=== PATIENT | male | born 1950 | race Asian ===

== ENCOUNTER → 2021-02-07 | Emergency (ER) | payer OTHER, MEDICARE ==
[~2021-02-07] VITALS: Ht 167.6 cm; Wt 68.5 kg
[~2021-02-07] MED LIST: ACETAMINOPHEN 325 MG TABLET PO ONE; ALFU10TA10 PO; CEPH-548 PO; LIP20 PO; LOSA25TA3 PO; NACL 0.9% 1,000 ML IV ONE; NITR-85 PO; NS 1000 ML IV.SOLN IV ONE; ONDANSETRON HCL 4 MG/2 ML VIAL IVP ONE; cefTRIAXone 1 GM IVPB PREMIX 50 ML IV ONE; cefTRIAXone 1 GM VIAL ONE; cefTRIAXone 1 GM in D5W 50 ML IV ONE
[2021-02-07 09:11] VITALS: BP_SYST 141
--- NOTE | 2021-02-07 09:11 | NUR ---
BROUGHT IN BY [facility], TRIAGED, REPORT GIVEN TO ERNESTO
--- NOTE | 2021-02-07 09:14 | NUR ---
DR LIMA AT BEDSIDE FOR EVALUATION
--- NOTE | 2021-02-07 09:49 | NUR ---
Pt in Bed 1, changed into gown. Belongings at bedside. VSS.
--- NOTE | 2021-02-07 10:46 | NUR ---
Pt in Bed 1, No s/s of distress. VSS. Placed in/out cath for urine sample. IV 20 g placed on L AC. No infiltration noted. Labs and cultures drawn. Pt currenty at x-ray.
[2021-02-07 10:59] LABS: BASOPHILS % (AUTO) 0.4 % (0.0-2.0); EOSINOPHILS % (AUTO) 0.1 % (0.0-4.0); HEMATOCRIT 40.2 % (36-54); HEMOGLOBIN 13.5 g/dL (14.0-18.0); LYMPHOCYTES # (AUTO) 0.8 K/uL (1.0-5.5); MEAN CORPUSCULAR HEMOGLOBIN 31 pg (27-31); MEAN CORPUSCULAR HGB CONC 34 % (32-36); MEAN CORPUSCULAR VOLUME 93 fL (79.0-98.0); MONOCYTES # (AUTO) 0.8 K/uL (0.0-1.0); MONOCYTES % (AUTO) 6.6 % (1.7-9.3); NEUTROPHILS # (AUTO) 10.2 K/uL (1.8-7.7); NEUTROPHILS % (AUTO) 85.9 % (40.0-70.0); PLATELET COUNT (AUTO) 131 K/uL (130-430); RED BLOOD CELL COUNT(AUTO) 4.31 MIL/uL (4.2-6.2); WHITE BLOOD COUNT (AUTO) 11.9 K/uL (4.8-10.8)
[2021-02-07 11:17] LABS: ANION GAP 4 (5-15); CALCIUM 8.5 mg/dL (8.4-11.0); CHLORIDE 100 mmol/L (98-107); CREATININE 0.94 mg/dL (0.55-1.30); GLUCOSE 128 mg/dL (70-99); POTASSIUM 3.5 mmol/L (3.5-5.1); SODIUM SERUM 134 mmol/L (136-145); UREA NITROGEN, BLOOD 18 mg/dL (8-21)
[2021-02-07 11:18] LABS: PROTHROMBIN TIME 10.5 SECS (9.5-12.5)
[2021-02-07 11:24] LABS: BILIRUBIN,URINE NEGATIVE (NEGATIVE); BLOOD, URINE 2+ (NEGATIVE); CLARITY/URINE SL CLOUDY (CLEAR); COLOR,URINE YELLOW (YELLOW); GLUCOSE,URINE NEGATIVE (NEGATIVE); KETONES,URINE NEGATIVE (NEGATIVE); LEUKOCYTE ESTERASE ,URINE 2+ (NEGATIVE); NITRITE, URINE POSITIVE (NEGATIVE); PH,URINE 6.5 (5.0-8.0); PROTEIN URINE NEGATIVE (NEGATIVE); UROBILINOGEN,URINE 0.2 (0.2-1.0)
--- NOTE | 2021-02-07 11:25 | NUR ---
INSERTED 16 FR URIBE CATHETER UTILIZING STERILE TECHNIQUE. TOLERATED WELL BY PATIENT. NO COMPLICATIONS NOTED. YELLOW CLEAR URINE DRAINING, 200ML AT TIME OF NOTE, BUT STILL DRAINING.
[2021-02-07 11:33] LABS: ALANINE AMINOTRANSFERASE 29 U/L (12-78); ALBUMIN 3.3 g/dL (3.4-4.8); ASPARTATE AMINOTRANSFERASE 13 U/L (10-37); TOTAL BILIRUBIN 1.4 mg/dL (0.0-1.0)
--- NOTE | 2021-02-07 11:35 | NUR ---
Culver catheter in place. Pt has no c/o. VSS. Medication reconciliation done.
[2021-02-07 12:48] LABS: BACTERIA,URINE MODERATE /HPF (None Seen); WBC,URINE 20-50 /HPF (0-3)
--- NOTE | 2021-02-07 13:13 | NUR ---
ER physician at bedside.
--- NOTE | 2021-02-07 18:34 | NUR ---
Emptied Culver Cath and 1000ml was removed.
[2021-02-07 18:39] VITALS: BP_SYST 110
== END | disposition home or self-care (01) ==
LOC: SED 09:11
DX: A41.9 Sepsis, unspecified organism (principal); N39.0 Urinary tract infection, site not specified; R33.9 Retention of urine, unspecified; I10 Essential (primary) hypertension; Z79.899 Other long term (current) drug therapy; Z20.822 Contact with and (suspected) exposure to COVID-19
CPT/HCPCS: 36415; 71045; 74176; 76376; 80053; 81000; 83605; 84484; 85025; 85610; 85730; 87040; 87086; 87426; 93005; 96361; 96365; 96366; 96375; 99285; J0696 ×2; J2405; J7030

== ENCOUNTER 2021-02-08 03:49 | Emergency (ER) | payer OTHER, MEDICARE ==
[~2021-02-08] VITALS: Ht 167.6 cm; Wt 68.5 kg
[~2021-02-08 03:49] MED LIST changes: -ACETAMINOPHEN 325 MG TABLET PO ONE; -CEPH-548 PO; -NACL 0.9% 1,000 ML IV ONE; -NS 1000 ML IV.SOLN IV ONE; -ONDANSETRON HCL 4 MG/2 ML VIAL IVP ONE; -cefTRIAXone 1 GM IVPB PREMIX 50 ML IV ONE; -cefTRIAXone 1 GM VIAL ONE; -cefTRIAXone 1 GM in D5W 50 ML IV ONE
--- NOTE | 2021-02-08 04:15 | NUR ---
DR. JACOB IN TRIAGE FOR MSE
--- NOTE | 2021-02-08 04:20 | NUR ---
PT WALKED IN C/O CONTINUED URINARY RETENTION. PT WAS DISCHARGED TODAY FOR THE SAME, +UTI. PT HAD A URIBE EARLIER THAT WAS REMOVED. PT UNABLE TO URINATE.
--- NOTE | 2021-02-08 04:30 | NUR ---
Patient to ER bed 7 to gown for evaluation. Side rails up.
[2021-02-08] MEDS ORDERED: CEPH-548 PO (04:34)
[2021-02-08 04:35] VITALS: BP_SYST 124
--- NOTE | 2021-02-08 05:34 | NUR ---
# 16 FR Culver catheter with use of sterile technique. Immediate return of 550 cc YELLOW urine noted. Bedside drainage bag placed below level of bladder. Pt tolerated procedure WELL.
[2021-02-08 05:50] VITALS: BP_SYST 124
--- NOTE | 2021-02-08 05:50 | NUR ---
Patient given written and verbal discharge instructions and verbalizes understanding. ER MD discussed with patient the results and treatment provided. Patient in stable condition. ID arm band removed. Rx of KEFLEX given. Patient educated on pain management and to follow up with PMD. Pain Scale 0/10. Opportunity for questions provided and answered. Medication side effect fact sheet provided.
== END 2021-02-08 05:50 | disposition home or self-care (01) ==
LOC: SED 03:49
DX: N12 Tubulo-interstitial nephritis, not specified as acute or chronic (principal); N32.0 Bladder-neck obstruction; R33.9 Retention of urine, unspecified; I10 Essential (primary) hypertension; N40.0 Benign prostatic hyperplasia without lower urinary tract symptoms
CPT/HCPCS: 99284

== ENCOUNTER 2022-06-10 15:23 | Emergency (ER) | payer OTHER, MEDICARE ==
[~2022-06-10] VITALS: Ht 167.6 cm; Wt 74.8 kg
[~2022-06-10 15:23] MED LIST changes: +CEPH-548 PO
[2022-06-10 15:58] VITALS: BP_SYST 138
[2022-06-10] MEDS ORDERED: IBUPROFEN 800 MG TABLET PO ONE (16:15)
[2022-06-10] MEDS ORDERED: HYDROcodone/ACETAMIN 7.5-325 MG TAB PO ONE (16:15)
--- NOTE | 2022-06-10 16:20 | NUR ---
Dr Barclay evaluating patient in the triage room
--- NOTE | 2022-06-10 16:50 | NUR ---
Jorge brown in [facility] - 06/10/22 at [email or web address] Barclay evaluating patient in the triage room
--- NOTE | 2022-06-10 16:50 | NUR ---
Dr Barclay evaluating patient in the triage room
--- NOTE | 2022-06-10 17:02 | NUR ---
Pt brought by self, Alert and appropiate to age, ambulatory, pt presents to ER with severe bilateral arm pain and headache after he fell off rolling chair yesterday, no KO, skin pink and warm, cap refill <3.
--- NOTE | 2022-06-10 21:31 | NUR ---
PLACED IN ROOM 3 PT CONNECTED TO VS MONITOR. VSS NAD EVEN UNLABORED RESPIRATIONS. FAMILY AT BEDSIDE PT STATES HE HAS PAIN AND SWELLING TO RIGHT ARM AND HIT HIS HEAD WHEN HE FELL OFF A CHAIR WITH 4 WHEELS, FAMILY AND HIM STATE IT WAS AN ACCIDENT NO LOC. PT AND FAMILY MEMBER GIVEN WATER MADE AWARE OF PAIN PT IS EXPERIENCING.
--- NOTE | 2022-06-10 21:40 | NUR ---
ER at bedside examining patient.
[2022-06-10] MEDS ORDERED: KETOROLAC TROMETHAMINE 60 MG/2 ML VIAL IM ONE (21:45)
[2022-06-10] MEDS ORDERED: IBUP-1971 PO (22:07)
[2022-06-10] MEDS ORDERED: HYDR-3917 PO (22:07)
[2022-06-10 22:35] VITALS: BP_SYST 136
--- NOTE | 2022-06-10 22:37 | NUR ---
Patient given written and verbal discharge instructions and verbalizes understanding. ER MD discussed with patient the results and treatment provided. Patient in stable condition. ID arm band removed. Rx of IBUPROFEN AND NORCO given. Patient educated on pain management and to follow up with PMD. Pain Scale . Opportunity for questions provided and answered. Medication side effect fact sheet provided.
== END 2022-06-10 22:35 | disposition home or self-care (01) ==
LOC: SED 15:23
DX: S00.03XA Contusion of scalp, initial encounter (principal); S40.021A Contusion of right upper arm, initial encounter; I10 Essential (primary) hypertension; Z79.899 Other long term (current) drug therapy; W07.XXXA Fall from chair, initial encounter; Y93.89 Activity, other specified; Y92.89 Other specified places as the place of occurrence of the external cause; Y99.8 Other external cause status
CPT/HCPCS: 99285; 70450; 73030; 73070; 73100; 76376; 96372; J1885

== ENCOUNTER 2023-11-16 05:46 | Inpatient (IN) | payer OTHER, MEDICARE ==
[~2023-11-16] VITALS: Ht 167.6 cm; Wt 81.6 kg
[~2023-11-16 05:46] MED LIST changes: -ALFU10TA10 PO; +ALFU10TA47 PO; +HYDR-3917 PO; +IBUP-1971 PO; +LOSA-412 PO; -LOSA25TA3 PO
[2023-11-16 06:11] VITALS: BP_SYST 141; PULSE 67; RESP 19; TEMP 96.7; O2SAT 95
[2023-11-16] MEDS: MECLIZINE HCL 25 MG TABLET (ANITVERT) PO ONE (06:56)
[2023-11-16] MEDS: METOCLOPRAMIDE HCL 10 MG/2 ML VIAL IVP ONE (07:02)
[2023-11-16 07:33] LABS: BASOPHILS % (AUTO) 0.6 % (0.0-2.0); EOSINOPHILS # (AUTO) 0.3 K/uL (0.0-0.4); EOSINOPHILS % (AUTO) 4.2 % (0.0-4.0); HEMATOCRIT 43.9 % (36-54); HEMOGLOBIN 14.6 g/dL (14.0-18.0); LYMPHOCYTES # (AUTO) 1.5 K/uL (1.0-5.5); LYMPHOCYTES % (AUTO) 20.7 % (20.5-51.5); MEAN CORPUSCULAR HEMOGLOBIN 32 pg (27-31); MEAN CORPUSCULAR HGB CONC 33 % (32-36); MEAN CORPUSCULAR VOLUME 97 fL (79.0-98.0); MONOCYTES # (AUTO) 0.6 K/uL (0.0-1.0); MONOCYTES % (AUTO) 8.4 % (1.7-9.3); NEUTROPHILS # (AUTO) 4.8 K/uL (1.8-7.7); NEUTROPHILS % (AUTO) 66.1 % (40.0-70.0); PLATELET COUNT (AUTO) 170 K/uL (130-430); RED BLOOD CELL COUNT(AUTO) 4.53 MIL/uL (4.2-6.2); RED CELL DISTRIBUTION WIDTH 13.3 % (9.0-15.0); WHITE BLOOD COUNT (AUTO) 7.3 K/uL (4.8-10.8)
[2023-11-16 07:46] LABS: PROTHROMBIN TIME 10.3 SECS (9.5-12.5)
[2023-11-16 08:01] LABS: ALANINE AMINOTRANSFERASE 34 U/L (12-78); ALBUMIN 3.7 g/dL (3.4-4.8); ANION GAP 8 (5-15); ASPARTATE AMINOTRANSFERASE 28 U/L (10-37); BILIRUBIN,DIRECT 0.2 mg/dL (0.0-0.3); CALCIUM 9.1 mg/dL (8.4-11.0); CARBON DIOXIDE 28 mmol/L (23-29); CHLORIDE 107 mmol/L (98-107); CREATINE KINASE, TOTAL 149 U/L (39-308); CREATININE 0.75 mg/dL (0.55-1.30); GLUCOSE 126 mg/dL (74-106); POTASSIUM 4.6 mmol/L (3.5-5.1); SODIUM SERUM 143 mmol/L (136-145); TOTAL BILIRUBIN 0.8 mg/dL (0.0-1.0); TOTAL PROTEIN, SERUM 7.3 g/dL (6.4-8.3); UREA NITROGEN, BLOOD 22 mg/dL (8-21)
[2023-11-16] MEDS ORDERED: LORazepam 2 MG/ML VIAL IVP PRN (09:15)
[2023-11-16] MEDS ORDERED: MORPHINE 2 MG/ML INJ. SYRINGE IVP PRN (09:15)
[2023-11-16] MEDS ORDERED: ISOS5TAB2 (09:26)
[2023-11-16] MEDS ORDERED: CLOP75TA2 (09:26)
[2023-11-16] MEDS ORDERED: ASA81 (09:26)
[2023-11-16 11:12] VITALS: BP_SYST 121; PULSE 68; RESP 16; TEMP 97.5; O2SAT 98
[2023-11-16 12:02] VITALS: BP_SYST 121; PULSE 68; RESP 16; TEMP 97.5; O2SAT 98
[2023-11-16] MEDS: ASPIRIN 81 MG TAB.CHEW PO ONE (14:23)
[2023-11-16] MEDS: CLOPIDOGREL BISULFATE 75 MG TABLET PO ONE (14:23)
[2023-11-16] MEDS: ONDANSETRON HCL 4 MG/2 ML VIAL IVP PRN (14:24)
[2023-11-16] MEDS: LOSARTAN POTASSIUM 25 MG TABLET PO ONE (14:24)
[2023-11-16 17:21] VITALS: BP_SYST 109; PULSE 68; RESP 15; TEMP 98.5; O2SAT 97
[2023-11-16 20:00] VITALS: BP_SYST 137; PULSE 77; RESP 20; TEMP 97.4; O2SAT 93
[2023-11-17 00:54] VITALS: BP_SYST 133; PULSE 65; RESP 16; TEMP 98.6; O2SAT 96
[2023-11-17 00:59] LABS: BILIRUBIN,URINE NEGATIVE (NEGATIVE); BLOOD, URINE NEGATIVE (NEGATIVE); CLARITY/URINE CLEAR (CLEAR); COLOR,URINE YELLOW (YELLOW); GLUCOSE,URINE NEGATIVE (NEGATIVE); KETONES,URINE NEGATIVE (NEGATIVE); LEUKOCYTE ESTERASE ,URINE NEGATIVE (NEGATIVE); NITRITE, URINE NEGATIVE (NEGATIVE); PH,URINE 6.5 (5.0-8.0); PROTEIN URINE NEGATIVE (NEGATIVE)
[2023-11-17 08:00] VITALS: BP_SYST 135; PULSE 69; RESP 18; TEMP 97.9; O2SAT 95
[2023-11-17] MEDS ORDERED: MECLIZINE HCL 25 MG TABLET (ANITVERT) PO PRN (08:00)
[2023-11-17] MEDS: CLOPIDOGREL BISULFATE 75 MG TABLET PO SCH (08:16)
[2023-11-17] MEDS: LOSARTAN POTASSIUM 25 MG TABLET PO SCH (08:16)
[2023-11-17] MEDS: ATORVASTATIN 20 MG TABLET PO SCH (08:16)
[2023-11-17] MEDS: ASPIRIN 81 MG TAB.CHEW PO SCH (08:16)
[2023-11-17] MEDS: MECLIZINE HCL 25 MG TABLET (ANITVERT) PO SCH (09:35)
[2023-11-17 09:38] LABS: BASOPHILS # (AUTO) 0.1 K/uL (0.0-0.2); BASOPHILS % (AUTO) 0.9 % (0.0-2.0); EOSINOPHILS # (AUTO) 0.6 K/uL (0.0-0.4); EOSINOPHILS % (AUTO) 10.9 % (0.0-4.0); HEMATOCRIT 42.9 % (36-54); HEMOGLOBIN 14.5 g/dL (14.0-18.0); LYMPHOCYTES # (AUTO) 2.1 K/uL (1.0-5.5); LYMPHOCYTES % (AUTO) 37.2 % (20.5-51.5); MEAN CORPUSCULAR HEMOGLOBIN 33 pg (27-31); MEAN CORPUSCULAR HGB CONC 34 % (32-36); MEAN CORPUSCULAR VOLUME 97 fL (79.0-98.0); MONOCYTES # (AUTO) 0.6 K/uL (0.0-1.0); MONOCYTES % (AUTO) 10.5 % (1.7-9.3); NEUTROPHILS # (AUTO) 2.3 K/uL (1.8-7.7); NEUTROPHILS % (AUTO) 40.5 % (40.0-70.0); PLATELET COUNT (AUTO) 175 K/uL (130-430); RED BLOOD CELL COUNT(AUTO) 4.44 MIL/uL (4.2-6.2); RED CELL DISTRIBUTION WIDTH 13.3 % (9.0-15.0); WHITE BLOOD COUNT (AUTO) 5.6 K/uL (4.8-10.8)
[2023-11-17 10:14] LABS: ALANINE AMINOTRANSFERASE 29 U/L (12-78); ALBUMIN 3.5 g/dL (3.4-4.8); ANION GAP 9 (5-15); ASPARTATE AMINOTRANSFERASE 18 U/L (10-37); CALCIUM 8.9 mg/dL (8.4-11.0); CARBON DIOXIDE 29 mmol/L (23-29); CHLORIDE 107 mmol/L (98-107); CREATININE 0.89 mg/dL (0.55-1.30); GLUCOSE 92 mg/dL (74-106); PHOSPHORUS 3.6 mg/dL (2.7-4.5); POTASSIUM 4.3 mmol/L (3.5-5.1); SODIUM SERUM 145 mmol/L (136-145); TOTAL BILIRUBIN 0.7 mg/dL (0.0-1.0); TOTAL PROTEIN, SERUM 6.9 g/dL (6.4-8.3); UREA NITROGEN, BLOOD 17 mg/dL (8-21)
[2023-11-17] MEDS: POLYETHYLENE GLYCOL 3350, 17 GM/ POWD.PACK PO ONE (10:49)
[2023-11-17 15:31] VITALS: BP_SYST 135; PULSE 69; RESP 18; TEMP 97.9; O2SAT 98
[2023-11-18] MEDS ORDERED: POLYETHYLENE GLYCOL 3350, 17 GM/ POWD.PACK PO SCH (09:00)
== END 2023-11-17 16:15 | disposition home or self-care (01) | DRG 74 ==
LOC: SED 05:46 → STU 09:02
PROVIDERS: ADMIT General Practice; ATTEND General Practice
DX: G90.9 Disorder of the autonomic nervous system, unspecified (principal); H81.10 Benign paroxysmal vertigo, unspecified ear; E78.5 Hyperlipidemia, unspecified; I10 Essential (primary) hypertension; I25.10 Atherosclerotic heart disease of native coronary artery without angina pectoris; N40.0 Benign prostatic hyperplasia without lower urinary tract symptoms; Z79.899 Other long term (current) drug therapy; Z88.8 Allergy status to other drugs, medicaments and biological substances
CPT/HCPCS: 36415; 70450-TC; 71045; 80048; 80053; 80076; 81001; 81003; 82550; 83735; 84100; 84443; 84484; 85025; 85610; 93306; 93880; 97110-GP; 97112-GP; 97116-GP; 97530-GP; 99285; G0378; J2405; J2765; J8597